=== PATIENT | female | born 1975 | race Caucasian/White ===

== ENCOUNTER 2020-04-11 06:12 | Inpatient (IN) | payer OTHER ==
[2020-04-06 16:47] LABS: BASOPHILS # (AUTO) 0.1 (0.0-0.1); BASOPHILS % 1.3 % (0.0-1.0); EOSINOPHILS # (AUTO) 0.6 (0.0-0.4); EOSINOPHILS % 8.1 % (0.0-6.0); HEMATOCRIT 40.4 % (34.2-44.1); HEMOGLOBIN 13.4 g/dL (12.0-16.0); LYMPHOCYTES # (AUTO) 2.2 (1.0-3.2); LYMPHOCYTES % 28.4 % (18.0-39.1); MEAN CORPUSCULAR HEMOGLOBIN 30.7 pg (28-32); MEAN CORPUSCULAR HGB CONC 33.2 g/dL (31-35); MEAN CORPUSCULAR VOLUME 92.4 fL (81-99); MONOCYTES # (AUTO) 0.6 (0.2-0.8); MONOCYTES % 7.9 % (4.4-11.3); NEUTROPHILS # (AUTO) 4.2 (2.1-6.9); NEUTROPHILS % 53.9 % (38.7-80.0); PLATELET COUNT 236 x10e3/uL (140-360); RED BLOOD COUNT 4.37 x10e6/uL (3.6-5.1); RED CELL DISTRIBUTION WIDTH 13.2 % (11.7-14.4)
[2020-04-06 17:26] LABS: ANION GAP 12.6 mmol/L (8-16); BLOOD UREA NITROGEN 10 mg/dL (7-26); BUN/CREATININE RATIO 13 (6-25); CALCIUM 9.1 mg/dL (8.4-10.2); CARBON DIOXIDE 25 mmol/L (22-29); CHLORIDE 103 mmol/L (98-107); CREATININE, SERUM 0.76 mg/dL (0.57-1.11); EST GLOMERULAR FILTRATION RATE > 60 ML/MIN (60-); GLUCOSE 217 mg/dL (74-118); POTASSIUM 3.6 mmol/L (3.5-5.1); SODIUM 137 mmol/L (136-145)
[~2020-04-11] VITALS: Ht 165.1 cm; Wt 82.6 kg
[~2020-04-11 06:12] MED LIST: AMLODIPINE BESY10 MG PO; JARDIANCE25 MG PO; LEVOTHYROXINE50 MCG PO; LEXAPRO10 MG PO; LISINOPRIL10 MG PO; PRILOSEC OTC20 MG PO; TOPIRAMATE25 MG PO; TRESIBA100 UNIT/1 SC
[2020-04-11] MEDS ORDERED: CEFAZOLIN SOD 1 GM/NS 50ML 50 ML IV ONE (07:25)
[2020-04-11] MEDS: SODIUM CHLORIDE 0.9% 250ML IRRIG IR SCH ×5 (09:00→23:24)
[2020-04-11] MEDS ORDERED: NALOXONE HCL INJ 0.4 MG/ML AMP IV PRN (09:00)
[2020-04-11] MEDS ORDERED: ACETAMINOPHEN 1000 MG/100 ML IV PRN (09:00)
[2020-04-11] MEDS ORDERED: ONDANSETRON HCL INJ 2MG/ML 2ML 2 MG/ML VIAL IV PRN (09:00)
[2020-04-11] MEDS ORDERED: MANNITOL 25% 12.5GM/50ML 50 ML ONE (09:32)
[2020-04-11] MEDS ORDERED: MICROFIBRILLER COLLAGEN HEMOSTAT 1 GM POWDER TP ONE (10:33)
[2020-04-11] MEDS ORDERED: SODIUM CHLORIDE 0.9% INJ 10 ML VIAL ONE (10:34)
[2020-04-11] MEDS ORDERED: SUGAMMADEX SODIUM 200 MG/2 ML VIAL IV ONE (11:42)
[2020-04-11] MEDS: MORPHINE SULFATE 1 MG/ML 30ML PCA IV PRN ×2 (11:50→18:17)
[2020-04-11] MEDS ORDERED: FENTANYL CITRATE/PF 100MCG/2 ML INJ ONE ×2 (12:23→12:54)
[2020-04-11 12:42] LABS: BASOPHILS # (AUTO) 0.1 (0.0-0.1); BASOPHILS % 0.6 % (0.0-1.0); EOSINOPHILS % 0.2 % (0.0-6.0); HEMATOCRIT 37.9 % (34.2-44.1); HEMOGLOBIN 12.8 g/dL (12.0-16.0); LYMPHOCYTES # (AUTO) 1.2 (1.0-3.2); LYMPHOCYTES % 6.7 % (18.0-39.1); MEAN CORPUSCULAR HEMOGLOBIN 30.9 pg (28-32); MEAN CORPUSCULAR HGB CONC 33.8 g/dL (31-35); MEAN CORPUSCULAR VOLUME 91.5 fL (81-99); MONOCYTES # (AUTO) 0.3 (0.2-0.8); NEUTROPHILS # (AUTO) 15.5 (2.1-6.9); PLATELET COUNT 269 x10e3/uL (140-360); RED BLOOD COUNT 4.14 x10e6/uL (3.6-5.1); RED CELL DISTRIBUTION WIDTH 13.3 % (11.7-14.4)
[2020-04-11] MEDS ORDERED: MIDAZOLAM HCL 2 MG/2 ML VIAL ONE (12:54)
[2020-04-11] MEDS ORDERED: PHENYLEPHRINE HCL 1% 10 MG/ML VIAL ONE (13:02)
[2020-04-11] MEDS ORDERED: LIDOCAINE HCL 2% LOCAL INJ 5 ML SDV VIAL INJ ONE (13:02)
[2020-04-11] MEDS ORDERED: DEXAMETHASONE SOD PHOS INJ 4 MG/ML VIAL ONE (13:02)
[2020-04-11] MEDS ORDERED: ROCURONIUM BROMIDE 10 MG/ML 5ML VIAL IV ONE (13:02)
[2020-04-11] MEDS ORDERED: ONDANSETRON HCL INJ 2MG/ML 2ML 2 MG/ML VIAL ONE (13:02)
[2020-04-11] MEDS ORDERED: SEVOFLURANE INHAL SOLN 250 ML PEN BTL ONE (13:02)
[2020-04-11] MEDS ORDERED: LABETALOL HCL 5 MG/ML 20ML VIAL ONE (13:02)
[2020-04-11] MEDS ORDERED: PROPOFOL IV EMULSION 10 MG/ML 20 ML VIAL ONE (13:02)
[2020-04-11 13:10] LABS: ANION GAP 14.3 mmol/L (8-16); BLOOD UREA NITROGEN 12 mg/dL (7-26); BUN/CREATININE RATIO 14 (6-25); CALCIUM 8.2 mg/dL (8.4-10.2); CARBON DIOXIDE 22 mmol/L (22-29); CHLORIDE 102 mmol/L (98-107); CREATININE, SERUM 0.83 mg/dL (0.57-1.11); EST GLOMERULAR FILTRATION RATE > 60 ML/MIN (60-); GLUCOSE 304 mg/dL (74-118); POTASSIUM 3.3 mmol/L (3.5-5.1); SODIUM 135 mmol/L (136-145)
[2020-04-11] MEDS ORDERED: HYDROMORPHONE 1MG/1ML INJ ONE (17:23)
[2020-04-11] MEDS ORDERED: MORPHINE SULFATE 1 MG/ML 30ML PCA ONE (17:24)
[2020-04-11] MEDS: D5.45%NS/KCL 20MEQ 1,000 ML IV SCH ×2 (18:31→23:24)
[2020-04-11] MEDS: CEFAZOLIN SOD 1 GM/NS 50ML 50 ML IV SCH ×2 (18:31→23:24)
[2020-04-11 19:07] VITALS: BP 130/78
[2020-04-11 20:00] VITALS: BP 139/75
[2020-04-11 20:24] VITALS: BP 139/75
[2020-04-11] MEDS: DIPHENHYDRAMINE HCL INJ 50 MG/ML VIAL IM PRN (20:41)
[2020-04-12] VITALS (7 sets, daily range): BP systolic 111–143; BP diastolic 63–81
[2020-04-12] MEDS: SODIUM CHLORIDE 0.9% 250ML IRRIG IR SCH (03:16)
[2020-04-12] MEDS: MORPHINE SULFATE 1 MG/ML 30ML PCA IV PRN (04:32)
[2020-04-12 04:45] LABS: BASOPHILS % 0.3 % (0.0-1.0); EOSINOPHILS % 0.1 % (0.0-6.0); HEMATOCRIT 33.2 % (34.2-44.1); LYMPHOCYTES # (AUTO) 1.2 (1.0-3.2); LYMPHOCYTES % 9.6 % (18.0-39.1); MEAN CORPUSCULAR HEMOGLOBIN 30.7 pg (28-32); MEAN CORPUSCULAR HGB CONC 33.1 g/dL (31-35); MEAN CORPUSCULAR VOLUME 92.7 fL (81-99); MONOCYTES # (AUTO) 1.4 (0.2-0.8); MONOCYTES % 11.6 % (4.4-11.3); NEUTROPHILS # (AUTO) 9.7 (2.1-6.9); NEUTROPHILS % 78.1 % (38.7-80.0); PLATELET COUNT 245 x10e3/uL (140-360); RED BLOOD COUNT 3.58 x10e6/uL (3.6-5.1); RED CELL DISTRIBUTION WIDTH 13.2 % (11.7-14.4)
[2020-04-12 05:02] LABS: ANION GAP 12.4 mmol/L (8-16); CALCIUM 8.3 mg/dL (8.4-10.2); CREATININE, SERUM 1.02 mg/dL (0.57-1.11); POTASSIUM 4.4 mmol/L (3.5-5.1)
[2020-04-12] MEDS ORDERED: MORPHINE SULFATE 1 MG/ML 30ML PCA IV PRN (07:00)
[2020-04-12] MEDS: D5.45%NS/KCL 20MEQ 1,000 ML IV SCH (09:06)
[2020-04-12] MEDS: CEFAZOLIN SOD 1 GM/NS 50ML 50 ML IV SCH ×2 (09:06→15:19)
[2020-04-12] MEDS ORDERED: MAGNESIUM SULFATE 2GM/50ML 50 ML IV ONE (09:15)
[2020-04-12] MEDS ORDERED: DEXTROSE 50% SYRINGE 50 ML IV PRN (09:15)
[2020-04-12] MEDS ORDERED: LEVOTHYROXINE SODIUM 100 MCG/VIAL IV SCH (09:15)
[2020-04-12] MEDS: INSULIN LISPRO 100 UNIT/1 ML 3ML VIAL SQ SCH ×4 (12:00→23:08)
[2020-04-12] MEDS: SODIUM CHLORIDE 0.9% 1000ML 1,000 ML IV SCH ×2 (12:00→16:19)
[2020-04-12] MEDS: HYDROMORPHONE 0.2MG/ML-SOD CHL 30ML PCA SYRINGE IV PRN ×2 (15:19→23:08)
[2020-04-12] MEDS ORDERED: ACETAMINOPHEN 1000 MG/100 ML IV PRN (19:30)
[2020-04-12] MEDS ORDERED: ACETAMINOPHEN 1000 MG/100 ML 100 ML IV ONE (20:23)
[2020-04-12] MEDS ORDERED: VANCOMYCIN 1GM/NS 250 ML 250 ML IV ONE (20:30)
[2020-04-12] MEDS: CEFEPIME 1GM/NS 0.9% 50 ML 50 ML IV SCH (20:52)
[2020-04-12] MEDS ORDERED: CEFEPIME HCL 1 GM VIAL IV SCH (22:00)
[2020-04-13] VITALS (7 sets, daily range): BP systolic 98–162; BP diastolic 62–83
[2020-04-13] MEDS: SODIUM CHLORIDE 0.9% 1000ML 1,000 ML IV SCH ×3 (00:21→20:33)
[2020-04-13] MEDS: CEFEPIME 1GM/NS 0.9% 50 ML 50 ML IV SCH ×3 (03:52→19:54)
[2020-04-13 05:09] LABS: BASOPHILS # (AUTO) 0.1 (0.0-0.1); BASOPHILS % 0.8 % (0.0-1.0); EOSINOPHILS # (AUTO) 0.3 (0.0-0.4); EOSINOPHILS % 1.8 % (0.0-6.0); HEMATOCRIT 30.6 % (34.2-44.1); HEMOGLOBIN 9.9 g/dL (12.0-16.0); LYMPHOCYTES # (AUTO) 1.5 (1.0-3.2); LYMPHOCYTES % 10.3 % (18.0-39.1); MEAN CORPUSCULAR HEMOGLOBIN 30.9 pg (28-32); MEAN CORPUSCULAR HGB CONC 32.4 g/dL (31-35); MEAN CORPUSCULAR VOLUME 95.6 fL (81-99); MONOCYTES # (AUTO) 1.1 (0.2-0.8); MONOCYTES % 7.7 % (4.4-11.3); NEUTROPHILS # (AUTO) 11.3 (2.1-6.9); PLATELET COUNT 193 x10e3/uL (140-360); RED CELL DISTRIBUTION WIDTH 13.2 % (11.7-14.4)
[2020-04-13] MEDS: DIPHENHYDRAMINE HCL INJ 50 MG/ML VIAL IM PRN ×2 (05:15→19:55)
[2020-04-13 05:24] LABS: BLOOD UREA NITROGEN 16 mg/dL (7-26); BUN/CREATININE RATIO 19 (6-25); CALCIUM 7.9 mg/dL (8.4-10.2); CARBON DIOXIDE 23 mmol/L (22-29); CHLORIDE 106 mmol/L (98-107); CREATININE, SERUM 0.85 mg/dL (0.57-1.11); EST GLOMERULAR FILTRATION RATE > 60 ML/MIN (60-); GLUCOSE 193 mg/dL (74-118); SODIUM 136 mmol/L (136-145)
[2020-04-13] MEDS: INSULIN LISPRO 100 UNIT/1 ML 3ML VIAL SQ SCH ×3 (06:00→17:57)
[2020-04-13] MEDS ORDERED: ACETAMINOPHEN 1000 MG/100 ML IV PRN (09:45)
[2020-04-13] MEDS: HYDROMORPHONE 1MG/1ML INJ IV PRN ×5 (10:59→22:40)
[2020-04-13] MEDS: VANCOMYCIN 750MG/NS 150ML IVPB 150 ML IV SCH ×2 (11:47→22:53)
[2020-04-13] MEDS: ACETAMINOPHEN/CODEINE 300MG - 30MG TAB PO PRN ×2 (15:15→19:57)
[2020-04-13] MEDS: DOCUSATE SODIUM 100 MG CAP PO SCH (17:37)
[2020-04-14] VITALS (7 sets, daily range): BP systolic 126–143; BP diastolic 75–86
[2020-04-14] MEDS: INSULIN LISPRO 100 UNIT/1 ML 3ML VIAL SQ SCH ×5 (00:08→20:42)
[2020-04-14] MEDS: ACETAMINOPHEN/CODEINE 300MG - 30MG TAB PO PRN ×2 (02:49→12:51)
[2020-04-14] MEDS: CEFEPIME 1GM/NS 0.9% 50 ML 50 ML IV SCH ×3 (05:04→20:38)
[2020-04-14 05:38] LABS: BASOPHILS # (AUTO) 0.1 (0.0-0.1); BASOPHILS % 0.6 % (0.0-1.0); EOSINOPHILS # (AUTO) 0.6 (0.0-0.4); EOSINOPHILS % 5.4 % (0.0-6.0); HEMOGLOBIN 10.5 g/dL (12.0-16.0); LYMPHOCYTES % 9.4 % (18.0-39.1); MEAN CORPUSCULAR HEMOGLOBIN 31.5 pg (28-32); MEAN CORPUSCULAR HGB CONC 33.9 g/dL (31-35); MEAN CORPUSCULAR VOLUME 93.1 fL (81-99); MONOCYTES # (AUTO) 0.7 (0.2-0.8); MONOCYTES % 6.8 % (4.4-11.3); NEUTROPHILS # (AUTO) 8.4 (2.1-6.9); NEUTROPHILS % 77.5 % (38.7-80.0); PLATELET COUNT 193 x10e3/uL (140-360); RED BLOOD COUNT 3.33 x10e6/uL (3.6-5.1); RED CELL DISTRIBUTION WIDTH 12.7 % (11.7-14.4)
[2020-04-14] MEDS: SODIUM CHLORIDE 0.9% 1000ML 1,000 ML IV SCH (05:44)
[2020-04-14] MEDS: HYDROMORPHONE 1MG/1ML INJ IV PRN ×8 (05:50→22:40)
[2020-04-14 06:06] LABS: ANION GAP 11.2 mmol/L (8-16); BLOOD UREA NITROGEN 7 mg/dL (7-26); BUN/CREATININE RATIO 10 (6-25); CALCIUM 8.3 mg/dL (8.4-10.2); CARBON DIOXIDE 23 mmol/L (22-29); CHLORIDE 103 mmol/L (98-107); CREATININE, SERUM 0.68 mg/dL (0.57-1.11); EST GLOMERULAR FILTRATION RATE > 60 ML/MIN (60-); GLUCOSE 132 mg/dL (74-118); POTASSIUM 3.2 mmol/L (3.5-5.1); SODIUM 134 mmol/L (136-145)
[2020-04-14] MEDS ORDERED: POTASSIUM CHLORIDE 10MEQ EA PO ONE (08:15)
[2020-04-14] MEDS ORDERED: ONDANSETRON HCL INJ 2MG/ML 2ML 2 MG/ML VIAL IV PRN (08:45)
[2020-04-14] MEDS ORDERED: FLUCONAZOLE 100 MG TAB PO ONE (08:45)
[2020-04-14] MEDS: DOCUSATE SODIUM 100 MG CAP PO SCH ×2 (09:13→16:54)
[2020-04-14] MEDS: AMLODIPINE BESYLATE 10 MG TAB PO SCH (09:13)
[2020-04-14] MEDS: ESCITALOPRAM OXALATE 10 MG TAB PO SCH (09:13)
[2020-04-14] MEDS: LEVOTHYROXINE SODIUM 50 MCG TAB PO SCH (09:14)
[2020-04-14] MEDS: TOPIRAMATE 25 MG TAB PO SCH (09:14)
[2020-04-14] MEDS ORDERED: SODIUM CHLORIDE 0.9% 250ML 250 ML ONE (20:56)
[2020-04-15] VITALS (9 sets, daily range): BP systolic 114–150; BP diastolic 68–97
[2020-04-15] MEDS: HYDROMORPHONE 1MG/1ML INJ IV PRN ×7 (00:47→22:00)
[2020-04-15] MEDS: ACETAMINOPHEN/CODEINE 300MG - 30MG TAB PO PRN (02:07)
[2020-04-15 06:14] LABS: BASOPHILS # (AUTO) 0.1 (0.0-0.1); BASOPHILS % 0.7 % (0.0-1.0); EOSINOPHILS # (AUTO) 0.9 (0.0-0.4); EOSINOPHILS % 9.5 % (0.0-6.0); HEMATOCRIT 28.4 % (34.2-44.1); HEMOGLOBIN 9.5 g/dL (12.0-16.0); LYMPHOCYTES # (AUTO) 1.4 (1.0-3.2); LYMPHOCYTES % 15.1 % (18.0-39.1); MEAN CORPUSCULAR HEMOGLOBIN 30.9 pg (28-32); MEAN CORPUSCULAR HGB CONC 33.5 g/dL (31-35); MEAN CORPUSCULAR VOLUME 92.5 fL (81-99); MONOCYTES # (AUTO) 0.7 (0.2-0.8); MONOCYTES % 7.3 % (4.4-11.3); NEUTROPHILS # (AUTO) 6.4 (2.1-6.9); NEUTROPHILS % 67.1 % (38.7-80.0); PLATELET COUNT 208 x10e3/uL (140-360); RED BLOOD COUNT 3.07 x10e6/uL (3.6-5.1); RED CELL DISTRIBUTION WIDTH 13.1 % (11.7-14.4)
[2020-04-15 06:35] LABS: ANION GAP 12.7 mmol/L (8-16); BLOOD UREA NITROGEN 9 mg/dL (7-26); BUN/CREATININE RATIO 12 (6-25); CALCIUM 8.4 mg/dL (8.4-10.2); CARBON DIOXIDE 23 mmol/L (22-29); CHLORIDE 102 mmol/L (98-107); CREATININE, SERUM 0.73 mg/dL (0.57-1.11); EST GLOMERULAR FILTRATION RATE > 60 ML/MIN (60-); GLUCOSE 148 mg/dL (74-118); POTASSIUM 3.7 mmol/L (3.5-5.1); SODIUM 134 mmol/L (136-145)
[2020-04-15] MEDS ORDERED: FLUCONAZOLE 100 MG TAB PO SCH (09:00)
[2020-04-15] MEDS ORDERED: VANCOMYCIN 1GM/NS 250 ML 250 ML IV SCH (09:00)
[2020-04-15] MEDS: ESCITALOPRAM OXALATE 10 MG TAB PO SCH (09:56)
[2020-04-15] MEDS: DOCUSATE SODIUM 100 MG CAP PO SCH ×2 (09:56→17:17)
[2020-04-15] MEDS: CEFEPIME 1GM/NS 0.9% 50 ML 50 ML IV SCH (09:57)
[2020-04-15] MEDS: AMLODIPINE BESYLATE 10 MG TAB PO SCH (09:57)
[2020-04-15] MEDS: TOPIRAMATE 25 MG TAB PO SCH (10:00)
[2020-04-15] MEDS: FLUCONAZOLE 100 MG TAB PO SCH (10:00)
[2020-04-15] MEDS ORDERED: MAGNESIUM HYDROXIDE 30 ML UDC PO PRN (10:00)
[2020-04-15] MEDS: LEVOTHYROXINE SODIUM 50 MCG TAB PO SCH (10:00)
[2020-04-15] MEDS: INSULIN LISPRO 100 UNIT/1 ML 3ML VIAL SQ SCH ×4 (10:01→20:54)
[2020-04-15] MEDS: HYDROCODONE/APAP 10MG-325MG TAB PO PRN ×3 (11:30→23:53)
[2020-04-15] MEDS: VANCOMYCIN 1GM/NS 250 ML 250 ML IV SCH (11:30)
[2020-04-16] VITALS (7 sets, daily range): BP systolic 123–153; BP diastolic 74–87
[2020-04-16] MEDS: HYDROMORPHONE 1MG/1ML INJ IV PRN ×5 (02:30→20:10)
[2020-04-16] MEDS: HYDROCODONE/APAP 10MG-325MG TAB PO PRN ×5 (05:05→23:00)
[2020-04-16 05:33] LABS: BASOPHILS # (AUTO) 0.1 (0.0-0.1); BASOPHILS % 0.6 % (0.0-1.0); EOSINOPHILS # (AUTO) 0.9 (0.0-0.4); EOSINOPHILS % 11.4 % (0.0-6.0); HEMATOCRIT 29.5 % (34.2-44.1); HEMOGLOBIN 9.8 g/dL (12.0-16.0); LYMPHOCYTES # (AUTO) 1.7 (1.0-3.2); LYMPHOCYTES % 20.4 % (18.0-39.1); MEAN CORPUSCULAR HEMOGLOBIN 31.2 pg (28-32); MEAN CORPUSCULAR HGB CONC 33.2 g/dL (31-35); MEAN CORPUSCULAR VOLUME 93.9 fL (81-99); MONOCYTES # (AUTO) 0.7 (0.2-0.8); NEUTROPHILS # (AUTO) 4.9 (2.1-6.9); NEUTROPHILS % 59.2 % (38.7-80.0); PLATELET COUNT 244 x10e3/uL (140-360); RED BLOOD COUNT 3.14 x10e6/uL (3.6-5.1); RED CELL DISTRIBUTION WIDTH 13.2 % (11.7-14.4)
[2020-04-16 05:55] LABS: BLOOD UREA NITROGEN 10 mg/dL (7-26); BUN/CREATININE RATIO 13 (6-25); CARBON DIOXIDE 27 mmol/L (22-29); CHLORIDE 102 mmol/L (98-107); EST GLOMERULAR FILTRATION RATE > 60 ML/MIN (60-); GLUCOSE 220 mg/dL (74-118); SODIUM 136 mmol/L (136-145)
[2020-04-16] MEDS: FLUCONAZOLE 100 MG TAB PO SCH (08:04)
[2020-04-16] MEDS: DOCUSATE SODIUM 100 MG CAP PO SCH ×2 (08:04→17:28)
[2020-04-16] MEDS: LEVOTHYROXINE SODIUM 50 MCG TAB PO SCH (08:05)
[2020-04-16] MEDS: ESCITALOPRAM OXALATE 10 MG TAB PO SCH (08:05)
[2020-04-16] MEDS: TOPIRAMATE 25 MG TAB PO SCH (08:05)
[2020-04-16] MEDS: AMLODIPINE BESYLATE 10 MG TAB PO SCH (08:15)
[2020-04-16] MEDS: INSULIN LISPRO 100 UNIT/1 ML 3ML VIAL SQ SCH ×4 (08:17→21:00)
[2020-04-16] MEDS: VANCOMYCIN 1GM/NS 250 ML 250 ML IV SCH (10:03)
[2020-04-16] MEDS ORDERED: CEFEPIME 1GM/NS 0.9% 50 ML 50 ML IV SCH (17:00)
[2020-04-17] VITALS: BP 155/87
[2020-04-17] MEDS: HYDROMORPHONE 1MG/1ML INJ IV PRN ×4 (01:20→12:52)
[2020-04-17] MEDS: HYDROCODONE/APAP 10MG-325MG TAB PO PRN ×3 (03:00→11:46)
[2020-04-17 03:44] VITALS: BP 152/83
[2020-04-17] MEDS: LEVOTHYROXINE SODIUM 50 MCG TAB PO SCH (05:55)
[2020-04-17 08:00] VITALS: BP 124/91
[2020-04-17 08:34] VITALS: BP 124/91
[2020-04-17] MEDS: FLUCONAZOLE 100 MG TAB PO SCH (08:53)
[2020-04-17] MEDS: DOCUSATE SODIUM 100 MG CAP PO SCH (08:53)
[2020-04-17] MEDS: ESCITALOPRAM OXALATE 10 MG TAB PO SCH (08:54)
[2020-04-17] MEDS: TOPIRAMATE 25 MG TAB PO SCH (08:54)
[2020-04-17] MEDS: AMLODIPINE BESYLATE 10 MG TAB PO SCH (08:54)
[2020-04-17] MEDS: INSULIN LISPRO 100 UNIT/1 ML 3ML VIAL SQ SCH ×2 (08:58→11:47)
[2020-04-17] MEDS ORDERED: CITRATE OF MAGNESIA 300ML BOTTLE PO ONE (09:15)
[2020-04-17] MEDS: VANCOMYCIN 1GM/NS 250 ML 250 ML IV SCH (10:04)
[2020-04-17 12:00] VITALS: BP 138/87
[2020-04-18] MEDS ORDERED: LEVOTHYROXINE SODIUM 50 MCG TAB PO SCH (06:00)
== END 2020-04-17 15:49 | disposition home or self-care (01) | DRG 657 ==
LOC: OR 06:12 → PACU V 09:00 → IMCU 18:05 → MED/SURG 04-14 13:22
PROVIDERS: ADMIT Internal Medicine; ATTEND Internal Medicine
PROC: 0TB00ZZ Excision of Right Kidney, Open Approach (ICD-10-PCS; principal; 2020-04-11 08:30)
DX: C64.1 Malignant neoplasm of right kidney, except renal pelvis (principal); E87.1 Hypo-osmolality and hyponatremia; J95.89 Other postprocedural complications and disorders of respiratory system, not elsewhere classified; J98.11 Atelectasis; E11.9 Type 2 diabetes mellitus without complications; E03.9 Hypothyroidism, unspecified; F41.9 Anxiety disorder, unspecified; I25.10 Atherosclerotic heart disease of native coronary artery without angina pectoris; E87.6 Hypokalemia; D72.828 Other elevated white blood cell count; T81.89XA Other complications of procedures, not elsewhere classified, initial encounter; E11.65 Type 2 diabetes mellitus with hyperglycemia; E66.9 Obesity, unspecified; Z68.30 Body mass index [BMI] 30.0-30.9, adult; Z11.59 Encounter for screening for other viral diseases
CPT/HCPCS: 36415; 71045; 71046; 80048; 81025; 82948; 83735; 85025; 86850; 86900; 86920; 87040; 87086; 88300; 88302; 88304; 88305; 88307; 88309; 88331; 93005; 96372; 97139; J0690; J0692; J1100; J1170; J1200; J2001; J2150; J2250; J2270; J2370; J2405; J3010; J3370; J3475; J7030; J7050; U0002